=== PATIENT | male | born 1975 | race Caucasian/White ===

== ENCOUNTER 2017-09-23 14:03 | Emergency (ER) | payer OTHER ==
[2017-09-23 14:05] VITALS: BP 159/92; PULSE 90; RESP 18; TEMP 97.7; O2SAT 99
[2017-09-23] MEDS ORDERED: ZITHTAB PO (14:11)
[2017-09-23] MEDS ORDERED: ADDE30TA PO (14:11)
[2017-09-23] MEDS ORDERED: TOPR50TA PO (14:11)
[2017-09-23 14:33] VITALS: BP 165/97; PULSE 78; RESP 18; O2SAT 99
--- NOTE | 2017-09-23 14:34 | PD ---
HPI Chief Complaint: Anxiety Time Seen by Provider: 14:15 Travel History International Travel<30 days: No Contact w/Intl Traveler<30days: No Traveled to known affect area: No History of Present Illness HPI 42-year-old male with a history of an arrhythmia presents emergency department evaluation of a 20 minute episode of shortness of breath and paresthesias of the hands and feet. Says that he was driving down [address] to go to his doctor's appointment today when he started developing his symptoms. His symptoms seems to have resolved on its own. Currently he denies shortness of breath, numbness , tingling the extremities. He denies weakness. He says that just prior to him driving to his doctor's appointment he took 500 mg azithromycin for an abscess to his right axilla. Says that he was driving to a doctor's office to receive treatment for this. Currently says his stomach "does not feel great" and says that he has not eaten anything except a protein shake this morning. Says that he took the azithromycin without eating. He says that he has a history of an arrhythmia and was previously evaluated by Dr. Kraft, cardiology and was told he should not take azithromycin. Patient states that because of the arrhythmia, that he should not take azithromycin however he did not remember this prior to taking this medication. Pt denies history of anxiety , depression, or panic attacks. Denies illicit drug use. Denies medical problems or medication use. 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 [facility] Past Medical History ADHD: Yes Atrial Fibrillation: Yes Gout: Yes Influenza Vaccination: No Social History Alcohol Use: Yes ("A LOT OVER THE HOLIDAY WEEKEND, USUALLY FEW TIMES A WEEK") Tobacco Use: Yes Substance Use: No Allergies-Medications (Allergen,Severity, Reaction): Coded Allergies: No Known Allergies (Unverified , 09/23/17) Reported Meds & Prescriptions Reported Meds & Active Scripts Active Keflex (Cephalexin) 500 Mg Cap 500 Mg PO Q8H 7 Days Bactrim DS (Sulfamethoxazole-Trimethoprim) 800-160 Mg Tab 1 Tab PO BID Reported Allopurinol 100 Mg Tab 100 Mg PO DAILY Zithromax Z-Cayden (Azithromycin) 250 Mg Dspk 250 Mg PO DIRECTED 500 MG (2 tabs) day 1, then 1 tab days 2-5. Adderall (Amphetamine-Dextroamphetamine) 30 Mg Tab 30 Mg PO DAILY Avoid late evening doses. Space doses at least 4 to 6 hours if more than once/day dosing. Toprol XL (Metoprolol Succinate) 50 Mg Tab 50 Mg PO DAILY Review of Systems Except as stated in HPI: all other systems reviewed are Neg Physical Exam Narrative GENERAL: Well-developed, well-nourished in no apparent distress SKIN: Focused skin assessment warm/dry. Right axilla-small 1 cm raised area with central puncta spontaneously draining white fluid HEAD: Atraumatic. Normocephalic. EYES: Pupils equal and round. No scleral icterus. No injection or drainage. ENT: No nasal bleeding or discharge. Mucous membranes pink and moist. NECK: Trachea midline. No JVD. No lymphadenopathy CARDIOVASCULAR: Regular rate and rhythm. No murmur appreciated. RESPIRATORY: No accessory muscle use. Clear to auscultation. Breath sounds equal bilaterally. GASTROINTESTINAL: Abdomen soft, non-tender, nondistended. No CVA tenderness MUSCULOSKELETAL: No obvious deformities. No clubbing. No cyanosis. No edema. NEUROLOGICAL: Awake and alert. Cranial nerves II through XII intact. Motor and sensory grossly within normal limits. Five out of 5 muscle strength in all muscle groups. Normal speech. PSYCHIATRIC: Appropriate mood and affect; insight and judgment normal. Data Data Last Documented VS Vital Signs Date Time Temp Pulse Resp B/P (MAP) Pulse Ox O2 Delivery O2 Flow Rate FiO2 09/23/17 17:52 72 18 166/78 (107) 99 09/23/17 16:05 Room Air 09/23/17 14:05 97.7 Orders Orders Complete Blood Count With Diff (09/23/17 14:17) Basic Metabolic Panel (Bmp) (09/23/17 14:17) Chest, Pa & Lat (09/23/17 14:17) Iv Access Insert/Monitor (09/23/17 14:17) Ecg Monitoring (09/23/17 14:17) Oxygen Administration (09/23/17 14:17) Oximetry (09/23/17 14:17) Electrocardiogram (09/23/17 14:17) D-Dimer (09/23/17 14:17) Drug Screen, Random Urine (09/23/17 14:18) Ct Pulmonary Angiogram (09/23/17 ) Iohexol 350 Inj (Omnipaque 350 Inj) (09/23/17 17:01) Ed Discharge Order (09/23/17 17:52) Labs Laboratory Tests Test 09/23/17 14:30 09/23/17 14:40 White Blood Count 6.5 TH/MM3 Red Blood Count 4.67 MIL/MM3 Hemoglobin 15.8 GM/DL Hematocrit 45.6 % Mean Corpuscular Volume 97.5 FL Mean Corpuscular Hemoglobin 33.8 PG Mean Corpuscular Hemoglobin Concent 34.6 % Red Cell Distribution Width 11.0 % Platelet Count 287 TH/MM3 Mean Platelet Volume 7.2 FL Neutrophils (%) (Auto) 75.4 % Lymphocytes (%) (Auto) 14.3 % Monocytes (%) (Auto) 9.2 % Eosinophils (%) (Auto) 0.1 % Basophils (%) (Auto) 1.0 % Neutrophils # (Auto) 4.9 TH/MM3 Lymphocytes # (Auto) 0.9 TH/MM3 Monocytes # (Auto) 0.6 TH/MM3 Eosinophils # (Auto) 0.0 TH/MM3 Basophils # (Auto) 0.1 TH/MM3 CBC Comment DIFF FINAL Differential Comment D-Dimer Quantitative (PE/DVT) 5.78 MG/L FEU Blood Urea Nitrogen 15 MG/DL Creatinine 1.10 MG/DL Random Glucose 118 MG/DL Calcium Level 8.9 MG/DL Sodium Level 135 MEQ/L Potassium Level 3.6 MEQ/L Chloride Level 100 MEQ/L Carbon Dioxide Level 22.2 MEQ/L Anion Gap 13 MEQ/L Estimat Glomerular Filtration Rate 74 ML/MIN Urine Opiates Screen NEG Urine Barbiturates Screen NEG Urine Amphetamines Screen POS Urine Benzodiazepines Screen NEG Urine Cocaine Screen NEG Urine Cannabinoids Screen NEG MDM Medical Decision Making Medical Screen Exam Complete: Yes Emergency Medical Condition: Yes Differential Diagnosis Medication reaction, panic attack, anxiety, allergic reaction, dysrhythmia Narrative Course 42-year-old male with a history of an arrhythmia presents emergency department evaluation of a 20 minute episode of shortness of breath and paresthesias of the hands and feet. Says that he was driving down [address] to go to his doctor's appointment today when he started developing his symptoms. His symptoms seems to have resolved on its own. Currently he denies shortness of breath, numbness , tingling the extremities. He denies weakness. He says that just prior to him driving to his doctor's appointment he took 500 mg azithromycin for an abscess to his right axilla. Says that he was driving to a doctor's office to receive treatment for this. Currently says his stomach "does not feel great" and says that he has not eaten anything except a protein shake this morning. Says that he took the azithromycin without eating. He says that he has a history of an arrhythmia and was previously evaluated by Dr. Kraft, cardiology and was told he should not take azithromycin. Patient states that because of the arrhythmia, that he should not take azithromycin however he did not remember this prior to taking this medication. Pt denies history of anxiety , depression, or panic attacks. Denies illicit drug use. Denies medical problems or medication use. 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 Vital signs are stable. Labs and imaging studies ordered. Labs are remarkable for an elevated d-dimer. CT pulmonary angiogram ordered for further evaluation. Last Impressions Chest X-Ray 09/23/17 1417 Signed Impressions: CONCLUSION: No acute cardiopulmonary findings. CT Angiography 09/23/17 0000 Signed Impressions: CONCLUSION: 1. There is poor opacification of the pulmonary arteries on both attempts. No PE is identified centrally to most of the lobar arterial vessels. More distal P E cannot be confidently excluded based on this examination. 2. Otherwise, the lungs are clear and no acute finding is identified. I discussed my findings with my attending, Dr. Walters. I do not believe that patient actually has a pulmonary embolism. Patient may have had a reaction to the azithromycin resulting in his symptoms today. Patient also may have had an anxiety/panic attack as well. Patient should follow-up with his primary care physician. As far as the abscess , prescribed Bactrim and Keflex. The area spontaneously draining patient had an appointment today with his primary care physician for treatment. He should follow-up with his primary care physician within 2-3 days. Diagnosis Primary Impression: Right axillary hidradenitis Additional Impression: Medication reaction Qualified Codes: T88.7XXA - Unspecified adverse effect of drug or medicament, initial encounter Referrals: Primary Care Physician Additional Instructions: Follow-up the primary care physician within 2-3 days. You will receive Bactrim for your abscess. Advised to follow-up with the primary care physician tomorrow. If your symptoms persist or worsen return to the emergency department. Scripts Cephalexin (Keflex) 500 Mg Cap 500 MG PO Q8H for Infection for 7 Days, #21 CAP 0 Refills Prov: Neda Walters MD 09/23/17 Sulfamethoxazole-Trimethoprim (Bactrim DS) 800-160 Mg Tab 1 TAB PO BID for Infection, #14 TAB 0 Refills Prov: Neda Walters MD 09/23/17 Disposition: 01 DISCHARGE HOME Condition: Stable Jannette Grajeda September 23, 2017 14:34
[2017-09-23] MEDS ORDERED: ALLO100T PO (14:41)
[2017-09-23 14:46] LABS: AUTOMATED NEUTROPHIL # 4.9 TH/MM3 (1.8-7.7); BASOPHIL # 0.1 TH/MM3 (0-0.2); EOSINOPHIL % 0.1 % (0.0-4.0); HEMATOCRIT 45.6 % (39.0-51.0); HEMOGLOBIN 15.8 GM/DL (13.0-17.0); LYMPH % 14.3 % (9.0-44.0); LYMPHOCYTE # 0.9 TH/MM3 (1.0-4.8); MEAN CELL VOLUME 97.5 FL (80.0-100.0); MEAN CORPUSCULAR HEMOGLOBIN 33.8 PG (27.0-34.0); MEAN CORPUSCULAR HGB CONC 34.6 % (32.0-36.0); MEAN PLATELET VOLUME 7.2 FL (7.0-11.0); MONO % 9.2 % (0.0-8.0); MONOCYTE # 0.6 TH/MM3 (0-0.9); NEUT % 75.4 % (16.0-70.0); PLATELET COUNT 287 TH/MM3 (150-450); RED BLOOD COUNT 4.67 MIL/MM3 (4.50-5.90); WHITE BLOOD COUNT 6.5 TH/MM3 (4.0-11.0)
--- NOTE | 2017-09-23 15:03 | RADRPT ---
EXAM DATE: 09/23/2017 2:53 PM EDT AGE/SEX: 42 years / Male INDICATIONS: Short of breath today. CLINICAL DATA: This is the patient's initial encounter. Patient reports that signs and symptoms have been present for 1 day and indicates a pain score of 0/10. MEDICAL/SURGICAL HISTORY: . Atrial fibrillation. None. The chronic back carotid a disuse the [facility] COMPARISON: No prior [facility] exams available for comparison. FINDINGS: PA and lateral views of the chest demonstrate the lungs to be symmetrically aerated without evidence of mass, infiltrate or effusion. The cardiomediastinal contours are unremarkable. Osseous structures are intact. CONCLUSION: No acute cardiopulmonary findings. Electronically signed by: Osmani Josue MD 09/23/2017 3:01 PM EDT
[2017-09-23 15:05] LABS: BICARBONATE 22.2 MEQ/L (21.0-32.0); CALCIUM 8.9 MG/DL (8.5-10.1)
[2017-09-23 15:09] LABS: CREATININE 1.1 MG/DL (0.60-1.30)
[2017-09-23 16:05] VITALS: BP 156/77; PULSE 78; RESP 18; O2SAT 99
[2017-09-23] MEDS ORDERED: IOHEXOL 350 MG/ML 10 ML VIAL (for RAD DIAG) IVCONTRAST ONE (17:01)
--- NOTE | 2017-09-23 17:25 | RADRPT ---
EXAM DATE: 09/23/2017 5:02 PM EDT AGE/SEX: 42 years / Male INDICATIONS: Short of breath. CLINICAL DATA: This is the patient's initial encounter. Patient reports that signs and symptoms have been present for 1 day and indicates a pain score of 0/10. MEDICAL/SURGICAL HISTORY: . Atrial fibrillation. None. RADIATION DOSE: 19.31 CTDI (mGy) COMPARISON: [facility], CHEST PA & LAT, 09/23/2017. . TECHNIQUE: Volumetric scanning was performed using a multi-row detector CT scanner during bolus infu ricardo of 120 ml Omnipaque 350 (iohexol) nonionic water-soluble contrast as a single exam dose. The da ta was post processed with a variety of visualization algorithms including full volume maximum intens ity projection and sliding thin slab reformation. Using automated exposure control and adjustment of the mA and/or kV according to patient size, radiation dose was kept as low as reasonably achievable to obtain optimal diagnostic quality images. FINDINGS: Lungs: No consolidation or pneumothorax. No concerning pulmonary nodule is identified. Mediastinum: The heart and great vessels demonstrate no acute abnormality. No lymphadenopathy is pre sent. There is poor opacification of the pulmonary arteries on both attempts. No central PE or defin ite PE is seen through the lobar arterial vessels but more distal PE cannot be excluded. Pleurae: No pleural effusion or pleural thickening. Axillae: No lymphadenopathy. Musculoskeletal: The bones and soft tissues demonstrate no acute abnormality. Miscellaneous: The visualized upper abdominal structures demonstrate no acute abnormality. CONCLUSION: 1. There is poor opacification of the pulmonary arteries on both attempts. No PE is identified centr ally to most of the lobar arterial vessels. More distal PE cannot be confidently excluded based on th is examination. 2. Otherwise, the lungs are clear and no acute finding is identified. Electronically signed by: Hair Machuca MD 09/23/2017 5:24 PM EDT
[2017-09-23] MEDS ORDERED: BACT800T5 PO (17:40)
[2017-09-23] MEDS ORDERED: CEPH-460 PO (17:46)
[2017-09-23 17:52] VITALS: BP 166/78
--- NOTE | 2017-09-23 20:40 | PD ---
Data Data Last Documented VS Vital Signs Date Time Temp Pulse Resp B/P (MAP) Pulse Ox O2 Delivery O2 Flow Rate FiO2 09/23/17 17:52 72 18 166/78 (107) 99 09/23/17 16:05 Room Air 09/23/17 14:05 97.7 Orders Orders Complete Blood Count With Diff (09/23/17 14:17) Basic Metabolic Panel (Bmp) (09/23/17 14:17) Chest, Pa & Lat (09/23/17 14:17) Iv Access Insert/Monitor (09/23/17 14:17) Ecg Monitoring (09/23/17 14:17) Oxygen Administration (09/23/17 14:17) Oximetry (09/23/17 14:17) Electrocardiogram (09/23/17 14:17) D-Dimer (09/23/17 14:17) Drug Screen, Random Urine (09/23/17 14:18) Ct Pulmonary Angiogram (09/23/17 ) Iohexol 350 Inj (Omnipaque 350 Inj) (09/23/17 17:01) Ed Discharge Order (09/23/17 17:52) Labs Laboratory Tests Test 09/23/17 14:30 09/23/17 14:40 White Blood Count 6.5 TH/MM3 Red Blood Count 4.67 MIL/MM3 Hemoglobin 15.8 GM/DL Hematocrit 45.6 % Mean Corpuscular Volume 97.5 FL Mean Corpuscular Hemoglobin 33.8 PG Mean Corpuscular Hemoglobin Concent 34.6 % Red Cell Distribution Width 11.0 % Platelet Count 287 TH/MM3 Mean Platelet Volume 7.2 FL Neutrophils (%) (Auto) 75.4 % Lymphocytes (%) (Auto) 14.3 % Monocytes (%) (Auto) 9.2 % Eosinophils (%) (Auto) 0.1 % Basophils (%) (Auto) 1.0 % Neutrophils # (Auto) 4.9 TH/MM3 Lymphocytes # (Auto) 0.9 TH/MM3 Monocytes # (Auto) 0.6 TH/MM3 Eosinophils # (Auto) 0.0 TH/MM3 Basophils # (Auto) 0.1 TH/MM3 CBC Comment DIFF FINAL Differential Comment D-Dimer Quantitative (PE/DVT) 5.78 MG/L FEU Blood Urea Nitrogen 15 MG/DL Creatinine 1.10 MG/DL Random Glucose 118 MG/DL Calcium Level 8.9 MG/DL Sodium Level 135 MEQ/L Potassium Level 3.6 MEQ/L Chloride Level 100 MEQ/L Carbon Dioxide Level 22.2 MEQ/L Anion Gap 13 MEQ/L Estimat Glomerular Filtration Rate 74 ML/MIN Urine Opiates Screen NEG Urine Barbiturates Screen NEG Urine Amphetamines Screen POS Urine Benzodiazepines Screen NEG Urine Cocaine Screen NEG Urine Cannabinoids Screen NEG MDM Supervised Visit with CHRISTOPHER: Yes Narrative Course The history, exam, and medical decision-making in the associated midlevel provider note were completed with my assistance. I reviewed and agree with the findings presented. I attest that I had a [id number] encounter with the patient on the same day, and personally performed and documented my assessment and findings in the medical record. *My assessment and Findings: This is a 42-year-old male who presents to the emergency department with shortness of breath and palpitations that started earlier today. He is well appearing on exam with a normal EKG and reassuring blood work. CT pulmonary angiogram was obtained which was negative for pulmonary embolism. His description of symptoms to me sound like panic attack however he has a history of arrhythmia and has been on azithromycin so this may be a medication side effect. Patient had a draining nidus on an abscess in his axilla so I expressed some pus here in the emergency department which he tolerated well. He was changed to Bactrim and Keflex. Patient will be discharged home to follow-up with his primary care physician. I do not think his symptoms are cardiac in etiology. Diagnosis Primary Impression: Right axillary hidradenitis Additional Impression: Medication reaction Referrals: Primary Care Physician 2 days Patient Instructions: General Instructions, Adverse Drug Reaction (ED), Hidradenitis Suppurativa (ED) Departure Forms: Tests/Procedures Additional Instruction: Follow-up the primary care physician within 2-3 days. You will receive Bactrim for your abscess. Advised to follow-up with the primary care physician tomorrow. If your symptoms persist or worsen return to the emergency department. Scripts Cephalexin (Keflex) 500 Mg Cap 500 MG PO Q8H for Infection for 7 Days, #21 CAP 0 Refills Prov: Neda Walters MD 09/23/17 Sulfamethoxazole-Trimethoprim (Bactrim DS) 800-160 Mg Tab 1 TAB PO BID for Infection, #14 TAB 0 Refills Prov: Neda Walters MD 09/23/17 Disposition: 01 DISCHARGE HOME Condition: Stable Neda Walters MD September 23, 2017 20:40
--- NOTE | 2017-09-24 14:18 | EKG ---
Date Performed: 09/23/2017 Time Performed: 14:23:30 PTAGE: 42 years EKG: Sinus rhythm WITH SINUS ARRHYTHMIA NORMAL ECG NO PREVIOUS TRACING DOCTOR: Matthias Manning Interpretating Date/Time 09/24/2017 14:17:55
== END 2017-09-23 17:56 | disposition home or self-care (01) ==
LOC: PHEFT 14:03
DX: L73.2 Hidradenitis suppurativa (principal); F15.90 Other stimulant use, unspecified, uncomplicated; I49.8 Other specified cardiac arrhythmias; F90.9 Attention-deficit hyperactivity disorder, unspecified type; I48.91 Unspecified atrial fibrillation; M10.9 Gout, unspecified; Z72.0 Tobacco use; Z79.899 Other long term (current) drug therapy
CPT/HCPCS: 71046; 71275; 80048; 80307; 85025; 85379; 93005; 99285; Q9967